=== PATIENT | female | born 1960 | race Caucasian/White ===

== ENCOUNTER 2023-11-29 13:34 | Outpatient (CLI) | payer BC, OTHER | END 2023-11-29 23:59 | disposition home or self-care (01) | LOC: VAS 13:34 | PROVIDERS: ATTEND Physician Assistant Medical | DX: K76.0 Fatty (change of) liver, not elsewhere classified (principal); I82.402 Acute embolism and thrombosis of unspecified deep veins of left lower extremity; M79.605 Pain in left leg; M79.642 Pain in left hand; R10.9 Unspecified abdominal pain; R07.81 Pleurodynia | CPT/HCPCS: 71046; 73060; 73130; 76700; 93971 ==

== ENCOUNTER 2023-12-11 11:24 | Outpatient (CLI) | payer BC, OTHER, SELFPAY | END 2023-12-11 23:59 | disposition home or self-care (01) | LOC: RAD 11:24 | PROVIDERS: ATTEND Physician Assistant Medical | DX: T14.8XXA Other injury of unspecified body region, initial encounter (principal); Z90.6 Acquired absence of other parts of urinary tract; V89.2XXA Person injured in unspecified motor-vehicle accident, traffic, initial encounter; Y93.89 Activity, other specified; Y92.89 Other specified places as the place of occurrence of the external cause; Y99.8 Other external cause status | CPT/HCPCS: 72192 ==